=== PATIENT | female | born 1980 | race Caucasian/White ===

== ENCOUNTER 2024-07-20 09:19 | Outpatient (AMB) | payer OTHER, SELFPAY ==
--- NOTE | 2024-07-20 09:45 | MHC.OFFWIV ---
Intake Vital Signs 07/20/24 09:46 Weight 250 lb BP 124/82 Blood Pressure Location Rt brachial Position Sitting Pulse 92 Pulse Source Pulse Oximeter Temp 99.8 F Temp Source Oral Pulse Oximetry (%) 97 Oxygen Delivery Method Room Air Intake Visit Reasons: [employer] coughing, SOB, heavy chest, wheezing Intake Note: Patient here for SOB, wheezing, cough and chest pain from coughing which has been present since friday. Patient Tobacco Use Status: Never used Tobacco Allergies hyoscyamine [From Levbid] Adverse Reaction (Mild, Verified 07/20/24 09:47) blurred vision Do you need a note to return to daycare/school/sports/work: Yes HPI HPI Comments History of Present Illness Details This is a 44-year-old female with a past medical history of bariatric surgery, PCOS, hypothyroidism and obstructive sleep apnea presenting for evaluation of a cough and chills that she has had since Friday. Patient denies having any fevers, otalgia, sore throat, difficulty swallowing but does endorse dyspnea with exertion. Patient has not taken any medication for treatment of her symptoms. [facility] Medical History (Updated 07/20/24 @ 10:39 by Perlita Cramer PA-C) Acute upper respiratory infection Social History Patient Tobacco Use Status: Never used Tobacco Review of Systems Const All systems reviewed & are unremarkable except as noted in HPI and below Reports as per HPI, Reports chills, Denies fatigue and Denies fever(s) Eyes Reports as per HPI ENT Reports no additional complaints, Denies otalgia, Denies sinus pain and Denies sore throat Card Reports as per HPI, Denies dyspnea and Reports dyspnea on exertion Resp Reports cough, Denies dyspnea, Reports dyspnea on exertion and Denies stridor GI Reports no additional complaints Reports no additional complaints Musc Reports no additional complaints Skin/Breast Reports system reviewed and no additional complaints, except as documented Neuro Reports no additional complaints Endo Reports no additional complaints and Denies fatigue Physical Exam Vital Signs: Last Vital Signs Temp 99.8 F 07/20/24 09:46 Pulse 92 07/20/24 09:46 BP 124/82 07/20/24 09:46 Pulse Ox 97 07/20/24 09:46 Oxygen Delivery Method Room Air 07/20/24 09:46 Const General: cooperative, healthy appearing, comfortable and no acute distress Nutritional Appearance: obese Orientation/consciousness: patient oriented x3 Limitations: no limitations HEENT Head: Yes normal to inspection Ears: hearing grossly normal bilaterally, external ears normal, TM's normal bilaterally and EAC's normal General nose exam: Normal external nose present Face and sinus: Yes normal facial exam Mouth: Normal oral and palatal mucosa present and moist mucous membranes Teeth and gingiva: dentition normal Throat: Yes posterior oropharynx normal (There is no edema, exudates or erythema of the posterior oropharynx) Eyes General: appearance normal, both eyes and all related structures EOM: EOMs intact bilaterally Neck Lymphatic: no lymphadenopathy noted Resp Effort & Inspection: normal respiratory effort, able to speak in complete sentences, no audible wheezes, Actively coughing and no respiratory distress Auscultation: wheezes (right) expiratory wheezes and right lower Cardio Rate: regular rate Rhythm: regular rhythm Skin General skin exam: no rashes or lesions noted Neuro General: patient oriented x3 Results Reviewed Results Reviewed: CXR reveals R. infiltrate Assessment & Plan Assessment & Plan (1) Pneumonia: Comment: R. infiltrate on imaging, suspect CAP. Code(s): J18.9 - Pneumonia, unspecified organism Qualifiers: Pneumonia type: due to unspecified organism Laterality: right Lung location: middle lobe of lung Qualified Code(s): J18.9 - Pneumonia, unspecified organism Plan: Amoxicillin 1 g t.i.d. x7 days. Orders: Orders XR chest 2V Today R05.9 - Cough, unspecified SARS-CoV2/FLU/RSV Today J06.9 - Acute upper respiratory infection, unspecified Medications: New amoxicillin 1,000 mg (2 x 500 mg) PO TID 7 days 42 tabs 0RF Coding Level of Care Code Est Pt Level 4 (77951) Diagnoses Pneumonia of right middle lobe due to infectious organism J18.9 Pneumonia type: due to unspecified organism Laterality: right Lung location: middle lobe of lung Time Spent (min) 30
[2024-07-20 09:46] VITALS: BP 124/82; PULSE 92; TEMP 37.7; O2SAT 97
== END 2024-07-20 11:12 | disposition home or self-care (01) ==
PROVIDERS: Visit Provider Physician Assistant
DX: J18.9 Pneumonia, unspecified organism (principal)

== ENCOUNTER 2024-07-20 09:19 | Outpatient (REF) | payer OTHER, SELFPAY ==
--- NOTE | ~2024-07-20 | XR_ITS ---
EXAMINATION: XR CHEST CLINICAL INFORMATION: R05.9 - Cough, unspecified COMPARISON: None available. TECHNIQUE: 2 views of the chest were obtained. FINDINGS: Linear opacity is evident in the right lower lung zone, probably within the right middle lobe. The left lung is clear. There are no pleural effusions. The cardiomediastinal silhouette is not enlarged. XR/XR chest 2V IMPRESSION: Right lower lung zone linear atelectasis or pneumonia, probably within the right middle lobe. Follow-up is recommended to confirm clearing. Electronically signed by: Nomi Henry MD 07/20/2024 11:17 AM [facility] [place]
[2024-07-20 14:20] LABS: Influenza A PCR NEGATIVE (Negative); Influenza B PCR NEGATIVE (Negative); Resp Syncy Virus RNA Qual PCR NEGATIVE (Negative); SARS COV2 PCR INHOUSE NEGATIVE (Negative)
== END 2024-07-20 09:20 | disposition home or self-care (01) ==
LOC: HO.HMGCX 09:19
PROVIDERS: PCP Family Medicine; Visit Provider Physician Assistant
DX: R05.9 Cough, unspecified (principal); J06.9 Acute upper respiratory infection, unspecified
CPT/HCPCS: 0241U; 71046